=== PATIENT | female | born 2000 | race Caucasian/White ===

== ENCOUNTER 2022-01-22 15:16 | Emergency (ER) | payer OTHER ==
[~2022-01-22] VITALS: Ht 177.8 cm; Wt 59.1 kg
[2022-01-22 15:26] VITALS: TEMP 99.6
[2022-01-22] MEDS ORDERED: ROBAXIN 75750 MG/TAB PO (16:48)
[2022-01-22 17:12] VITALS: BP 139/78; PULSE 106
== END 2022-01-22 17:12 | disposition home or self-care (01) ==
LOC: COL.ER 15:16
DX: S06.0X9A Concussion with loss of consciousness of unspecified duration, initial encounter (principal); S00.12XA Contusion of left eyelid and periocular area, initial encounter; S00.211A Abrasion of right eyelid and periocular area, initial encounter; M25.511 Pain in right shoulder; R00.0 Tachycardia, unspecified; Z28.310 Unvaccinated for COVID-19; V48.5XXA Car driver injured in noncollision transport accident in traffic accident, initial encounter; Y92.410 Unspecified street and highway as the place of occurrence of the external cause